=== PATIENT | female | born 1965 | race Caucasian/White ===

== ENCOUNTER 2016-07-07 14:25 | Emergency (ER) | payer MEDICAID ==
[2015-10-10 14:30] VITALS: BMI 22.7
[~2016-07-07 14:25] MED LIST: ASPIRIN81 MG PO; COUMADIN2 MG PO; COZAAR50 MG PO; HEMOCYTE PLUS C1 CAP PO; HYDROCODONE-APA1 TAB PO; KLONOPIN1 MG PO; SYNTHROID88 MCG PO
[2016-07-07 15:08] LABS: BASOPHILS 0.6 % (0.0-2.0); EOSINOPHILS 1.1 % (0-7); HEMATOCRIT 37.1 % (36.0-48.0); HEMOGLOBIN 12.7 g/dL (12-16); LYMPHOCYTES 38.1 % (15-50); MCH 30.7 pg (26.0-34.0); MCHC 34.2 g/dL (31.0-37.0); MCV 89.6 fL (80.0-100.0); MEAN PLATELET VOLUME 9.8 fL (7.4-10.4); NEUTROPHILS 54.2 % (40-80); RBC 4.14 10x6/uL (4.00-5.40); WBC 5.3 10x3/uL (4.8-10.8)
[2016-07-07 15:13] LABS: PLATELET COUNT 146 10x3/uL (130-400)
[2016-07-07 15:28] LABS: INR 2.22 (0.85-1.17); PROTIME 24.7 SECONDS (11.6-15.0)
[2016-07-07 15:29] LABS: APTT 81.4 SECONDS (22.8-39.4)
[2016-07-07 15:33] LABS: ALBUMIN 3.8 g/dL (3.4-5.0); ALKALINE PHOSPHATASE 104 U/L (46-116); ALT (SGPT) 19 U/L (10-68); BILIRUBIN - TOTAL 0.33 mg/dL (0.2-1.3); CALC OSMOLALITY 281 mosm/kg (275-300); CALCIUM 8.9 mg/dL (8.5-10.1); CARBON DIOXIDE 29.5 mmol/L (21.0-32.0); CHLORIDE - SERUM 105 mmol/L (98-107); CREATININE - SERUM 1.5 mg/dL (0.6-1.3); GLUCOSE 80 mg/dL (74-106); PROTEIN - SERUM 7.2 g/dL (6.4-8.2); SODIUM 140 mmol/L (136-145); UREA NITROGEN 23 mg/dL (7-18); eGFR NON AFRICAN AMERICAN 39 mL/min (90-120)
[2016-07-07 15:53] LABS: CKMB 1.1 U/L (0.0-3.6); CREATINE KINASE 88 UL (21-215)
[2016-07-07 15:56] LABS: TROPONIN-I 0.064 ng/mL (0.000-0.060)
== END 2016-07-07 18:07 | disposition home or self-care (01) ==
LOC: D.ER 14:25
PROVIDERS: Emergency Medicine
DX: T50.901A Poisoning by unspecified drugs, medicaments and biological substances, accidental (unintentional), initial encounter (principal); R41.82 Altered mental status, unspecified; J15.9 Unspecified bacterial pneumonia; R00.1 Bradycardia, unspecified; I10 Essential (primary) hypertension; E78.5 Hyperlipidemia, unspecified

== ENCOUNTER → 2017-02-16 10:23 | Outpatient (CLI) | payer MEDICAID ==
[2015-10-10 14:30] VITALS: BMI 22.7
== END | disposition home or self-care (01) ==
LOC: D.NM 10:23
DX: Z68.23 Body mass index [BMI] 23.0-23.9, adult (principal); N17.0 Acute kidney failure with tubular necrosis; I10 Essential (primary) hypertension; E03.9 Hypothyroidism, unspecified; M06.9 Rheumatoid arthritis, unspecified; Z68.22 Body mass index [BMI] 22.0-22.9, adult

== ENCOUNTER → 2017-08-25 08:27 | Outpatient (CLI) | payer MEDICAID ==
[2015-10-10 14:30] VITALS: BMI 22.7
== END | disposition home or self-care (01) ==
LOC: D.ECHO 08:27
DX: I35.0 Nonrheumatic aortic (valve) stenosis (principal)

== ENCOUNTER → 2017-10-03 14:00 | Outpatient (CLI) | payer MEDICAID ==
[2015-10-10 14:30] VITALS: BMI 22.7
[2017-10-03 14:42] LABS: INR 6.71 (0.85-1.17); PROTIME 57.3 SECONDS (11.6-15.0)
[2017-10-03 14:43] LABS: NORMAL PLASMA / PROTHROMBIN 14.5 SECONDS (11.6-15.0)
== END | disposition home or self-care (01) ==
LOC: D.LABREF 14:00
PROVIDERS: Internal Medicine Hematology & Oncology
DX: I82.509 Chronic embolism and thrombosis of unspecified deep veins of unspecified lower extremity (principal); Z79.01 Long term (current) use of anticoagulants

== ENCOUNTER → 2018-01-24 16:09 | Outpatient (CLI) | payer MEDICAID ==
[2015-10-10 14:30] VITALS: BMI 22.7
[2018-01-24 19:00] LABS: INR 4.33 (0.85-1.17); PROTIME 40.6 SECONDS (11.6-15.0)
== END | disposition home or self-care (01) ==
LOC: D.LABREF 16:09
PROVIDERS: Internal Medicine Hematology & Oncology
DX: I82.509 Chronic embolism and thrombosis of unspecified deep veins of unspecified lower extremity (principal); Z51.81 Encounter for therapeutic drug level monitoring; Z79.01 Long term (current) use of anticoagulants

== ENCOUNTER 2018-08-27 13:39 | Observation (INO) | payer OTHER, MEDICAID ==
[2018-08-27] VITALS (7 sets, daily range): BP systolic 130–161; BP diastolic 75–85; BMI 22.7
[~2018-08-27] VITALS: Ht 154.9 cm; Wt 57.2 kg
[2018-08-27] MEDS ORDERED: FOLATE0.4 MG PO (13:47)
[2018-08-27 14:33] LABS: BASOPHILS 0.4 % (0-2); HEMATOCRIT 40.4 % (36.0-48.0); HEMOGLOBIN 14.7 g/dL (12-16); LYMPHOCYTES 29.6 % (15-50); MCH 31.1 pg (26.0-34.0); MCHC 36.4 g/dL (31.0-37.0); MCV 85.6 fL (80.0-100.0); MEAN PLATELET VOLUME 9.1 fL (7.4-10.4); MONOCYTES 6.5 % (2-11); NEUTROPHILS 62.5 % (40-80); PLATELET COUNT 166 10x3/uL (130-400); RBC 4.72 10x6/uL (4.00-5.40); WBC 5.1 10x3/uL (4.8-10.8)
[2018-08-27 15:04] LABS: ALBUMIN 3.8 g/dL (3.4-5.0); ALKALINE PHOSPHATASE 95 U/L (46-116); ALT (SGPT) 17 U/L (10-68); BILIRUBIN - TOTAL 0.46 mg/dL (0.2-1.3); CALC OSMOLALITY 275 mosm/kg (275-300); CALCIUM 8.6 mg/dL (8.5-10.1); CARBON DIOXIDE 30.1 mmol/L (21.0-32.0); CHLORIDE - SERUM 98 mmol/L (98-107); CKMB 0.8 U/L (0.0-3.6); CREATINE KINASE 44 UL (21-215); CREATININE - SERUM 1.3 mg/dL (0.6-1.3); GLUCOSE 106 mg/dL (74-106); MAGNESIUM - SERUM 1.6 mg/dL (1.8-2.4); PROTEIN - SERUM 7.6 g/dL (6.4-8.2); SODIUM 137 mmol/L (136-145); TROPONIN-I 0.027 ng/mL (0.000-0.060); UREA NITROGEN 19 mg/dL (7-18); eGFR NON AFRICAN AMERICAN 45 mL/min (90-120)
[2018-08-27 15:06] LABS: POTASSIUM - SERUM 2.4 mmol/L (3.5-5.1)
[2018-08-27 15:51] LABS: D-DIMER-QUANTITATIVE < 0.27 ug/mLFEU (0.20-0.54)
[2018-08-27 16:02] LABS: APTT 76.1 SECONDS (22.8-39.4); INR 3.23 (0.85-1.17); PROTIME 32.2 SECONDS (11.6-15.0)
--- NOTE | 2018-08-27 22:39 | NUR ---
RECIEVED REPORT FROM [facility] AT 2039.ARRIVED TO FLOOR IN W/C AT 2054 WITH SPOUSE AT HER SIDE. ALERT AND ORIENTED X4. DENIES ANY PAIN UPON ASSESSMENT. WANTED TO KNOW HOW OFTEN SHE COULD HAVE HER PAIN MEDICATION. THEN C/O PAIN AND REQUESTED HER MORPHINE. MED GIVEN PER ORDERS. WILL REASSESS. IV TO RIGHT FA WITH NS WIT MAG AND K+ INFUSING AT 125/HR. NO REDNESS OR SWELLING TO SITE. UP AD CARMELA TO B/R. EXPLAINED NPO STATUS AT MIDNIGHT VERBAL UNDERSTANDING GIVEN.
[2018-08-28 00:23] VITALS: BP 161/84
[2018-08-28 05:30] VITALS: BP 102/68
--- NOTE | 2018-08-28 06:00 | NUR ---
D/C'D [facility] CATH WITH TIP INTACT.
[2018-08-28 06:28] LABS: BASOPHILS 0.4 % (0-2); EOSINOPHILS 1.8 % (0-7); HEMATOCRIT 37.6 % (36.0-48.0); HEMOGLOBIN 13.4 g/dL (12-16); IMMATURE GRANULOCYTES 0.2 % (0-5); LYMPHOCYTES 41.9 % (15-50); MCH 31.1 pg (26.0-34.0); MCHC 35.6 g/dL (31.0-37.0); MCV 87.2 fL (80.0-100.0); MEAN PLATELET VOLUME 9.6 fL (7.4-10.4); MONOCYTES 8.4 % (2-11); NEUTROPHILS 47.3 % (40-80); PLATELET COUNT 173 10x3/uL (130-400); RBC 4.31 10x6/uL (4.00-5.40); RDW 13.1 % (11.5-14.5); WBC 5.1 10x3/uL (4.8-10.8)
[2018-08-28 07:23] LABS: ALBUMIN 3.3 g/dL (3.4-5.0); ALKALINE PHOSPHATASE 83 U/L (46-116); ALT (SGPT) 16 U/L (10-68); BILIRUBIN - TOTAL 0.43 mg/dL (0.2-1.3); CALCIUM 8.1 mg/dL (8.5-10.1); CARBON DIOXIDE 29.2 mmol/L (21.0-32.0); CHLORIDE - SERUM 104 mmol/L (98-107); CKMB 0.8 U/L (0.0-3.6); CREATINE KINASE 45 UL (21-215); CREATININE - SERUM 1.2 mg/dL (0.6-1.3); GLUCOSE 83 mg/dL (74-106); PROTEIN - SERUM 6.5 g/dL (6.4-8.2); SODIUM 142 mmol/L (136-145); TROPONIN-I 0.037 ng/mL (0.000-0.060); eGFR NON AFRICAN AMERICAN 50 mL/min (90-120)
[2018-08-28 07:52] LABS: CALC OSMOLALITY 281 mosm/kg (275-300); POTASSIUM - SERUM 3.2 mmol/L (3.5-5.1); UREA NITROGEN 13 mg/dL (7-18)
[2018-08-28 07:58] LABS: MAGNESIUM - SERUM 3.5 mg/dL (1.8-2.4)
[2018-08-28 08:03] VITALS: BP 114/70
[2018-08-28] MEDS ORDERED: COUMADIN5 MG PO (11:07)
[2018-08-28] MEDS ORDERED: SYNTHROID50 MCG PO (11:08)
[2018-08-28 12:01] VITALS: BP 115/70
[2018-08-28 15:40] VITALS: BP 124/86
--- NOTE | 2018-08-28 15:46 | MORECARE ---
CASE MANAGEMENT DISCHARGE SUMMARY PATIENT: EVELYN MCLAUGHLIN UNIT: [id number] ADM DATE: 08/27/18 AGE: 53 : 63 SEX: F ROOM/BED: D.4300 AUTHOR: WILBERT ENG PHYSICIAN: REFERRING PHYSICIAN: MELITON MAIER MD DATE OF SERVICE: 08/28/18 Discharge Plan Patient Name: EVELYN MCLAUGHLIN Facility: [facility]:[place] : 1965 Planned Disposition: Anticipated Discharge Date: Discharge Date: Expected LOS: Initial Reviewer: [email or web address] Initial Review Date: 08/27/2018 Generated: 08/28/18 4:46 pm Coverage Notice Reviewer: [email or web address] - Adrienne Ashburn Notice Issued Date-Time: 08/28/2018 15:27 Notice Type: Medicare Outpatient Observation Notice Notice Delivered To: Patient Relationship to Patient: Self Logging Operations Inspector Name: Delivery Method: HAND - Hand Delivered Jacqueline Days: Prior Verbal Notification: Recipient Understood Notice: Yes Recipient Signature: Yes Med Rec Note Co-signed by Attending: Coverage Notice Comment: EDWARD DISCUSSED AFTER VERBAL CONSENT TO DO SUCH IN THE PRESENCE OF HER SPOUSE, GOLDY. Patient Name: EVELYN MCLAUGHLIN Page [id number] at 1546 All edits/amendments must be made on the electronic document DICTATION DATE: 08/28/18 1546 FINANCIAL OPERATIONS ANALYST: KARLI 08/28/18 1546 RPT#: [id number] DC DATE: STATUS: ADM IN [place] [id number] [place] [address] END OF REPORT
--- NOTE | 2018-08-28 19:31 | NUR ---
RECIEVED UP IN BED WITH EYES OPEN AND TV ON. SPOUSE AT BEDSIDE. ALERT AND ORIENTED X4. UP AD CARMELA. DENIES ANY NEEDS AT THIS TIME.
[2018-08-28 21:26] VITALS: BP 131/79
[2018-08-29 00:29] VITALS: BP 106/64
[2018-08-29 05:58] LABS: BASOPHILS 0.3 % (0-2); EOSINOPHILS 1.8 % (0-7); HEMOGLOBIN 13.3 g/dL (12-16); IMMATURE GRANULOCYTES 0.2 % (0-5); MCH 31.1 pg (26.0-34.0); MCV 88.8 fL (80.0-100.0); MEAN PLATELET VOLUME 9.4 fL (7.4-10.4); MONOCYTES 9.6 % (2-11); NEUTROPHILS 57.1 % (40-80); PLATELET COUNT 154 10x3/uL (130-400); RBC 4.28 10x6/uL (4.00-5.40); RDW 13.3 % (11.5-14.5)
[2018-08-29 06:13] LABS: PROTIME 26.3 SECONDS (11.6-15.0)
[2018-08-29 06:22] VITALS: BP 112/63
[2018-08-29 06:28] LABS: INR 2.5 (0.85-1.17)
[2018-08-29 06:34] LABS: ALBUMIN 3.4 g/dL (3.4-5.0); ANION GAP 12.4 mmol/L (8-16); BILIRUBIN - TOTAL 0.36 mg/dL (0.2-1.3); CALCIUM 8.2 mg/dL (8.5-10.1); CARBON DIOXIDE 29.9 mmol/L (21.0-32.0); CREATININE - SERUM 1.2 mg/dL (0.6-1.3); POTASSIUM - SERUM 3.3 mmol/L (3.5-5.1)
--- NOTE | 2018-08-29 07:18 | NUR ---
PT RESQUESTING PAIN MEDICATION FOR HEADACHE, GAVE 4MG OF MORPHINE FOR PAIN LEVEL OF 7/10. ALSO GAVE 40MEQ OF K FOR LOW K OF 3.3. PT DENIES ANY OTHER NEEDS AT THIS TIME. PT A/O X4, RESP EVEN AND NONLAOBRED ON RA. RT WRIST IV INFUISNG NS AT 125CC/HR. CALL LIGHT IN REACH,NAD NOTED, WILL CONTINUE TO MONITOR.
[2018-08-29 09:52] VITALS: BP 102/63
[2018-08-29] MEDS ORDERED: PROZAC20 MG PO (10:04)
[2018-08-29] MEDS ORDERED: HCTZ25 MG PO (10:04)
[2018-08-29] MEDS ORDERED: NORVASC10 MG PO (10:04)
--- NOTE | 2018-08-29 11:39 | NUR ---
4MG OF MORPHINE GIVEN FOR PAIN LEVEL OF 6/10. EKG DONE AT THIS TIME. SHOWING SR 62 LEFT AZIX DEVIATION. PT DENIES ANY OTHER NEEDS AT THIS TIME. CALL LIGHT IN RECH, AT BEDSIDE, NAD NOTED, WILL CONTINUE TO MONITOR.
[2018-08-29 13:03] LABS: CKMB 4.1 U/L (0.0-3.6); CREATINE KINASE 193 UL (21-215); POTASSIUM - SERUM 3.4 mmol/L (3.5-5.1); TROPONIN-I 0.051 ng/mL (0.000-0.060)
[2018-08-29 13:32] VITALS: Ht 154.9 cm; Wt 57.2 kg
[2018-08-29 15:18] VITALS: BP 165/93
[2018-08-29 17:58] LABS: CKMB 1.4 U/L (0.0-3.6); CREATINE KINASE 105 UL (21-215); TROPONIN-I 0.048 ng/mL (0.000-0.060)
--- NOTE | 2018-08-29 19:30 | NUR ---
PT RESTING IN BED. PT IS AAO, GLASSES ON AND WATCHING TV. PT DENIES ANY NEEDS. STATES SHE IS GOING TO TAKE A NAP, HEADACHES HAVE BEEN BOTHERING HER ALL DAY NAME AND DATE PLACED ON BOARD. BEDLOW AND CALL LIGHT IN REACH. WILL CPOC
[2018-08-29 21:01] VITALS: BP 117/67
--- NOTE | 2018-08-29 21:25 | NUR ---
PT COMPLAINS OF PAIN. MORPHINE GIVEN ORDERED. PT DENIES ANY OTHER NEEDS. WILL CPOC
[2018-08-29 22:44] LABS: CREATINE KINASE 97 UL (21-215); TROPONIN-I 0.045 ng/mL (0.000-0.060)
[2018-08-30 01:06] VITALS: BP 108/70
--- NOTE | 2018-08-30 04:31 | NUR ---
PT HAS BEEN IN SR. MONITOR NEEDED FOR ANOTHER PT. MONITOR REMOVED AND CLEANED.
--- NOTE | 2018-08-30 05:01 | NUR ---
SYNTHROID AND PROTONIX GIVEN. NOURISHMENT OFFERED. PT SITTING UP IN BED. PT IS UP AD CARMELA. PT WILL CALL FOR ASSIST WHEN NEEDED. NO S/S OF DISTRESS. PT WILL CALL FOR ASSIST WHEN NEEDED. WILL CPOC
[2018-08-30 06:05] VITALS: BP 105/55
[2018-08-30 06:05] LABS: INR 2.77 (0.85-1.17); PROTIME 28.5 SECONDS (11.6-15.0)
[2018-08-30 06:17] LABS: BASOPHILS 0.4 % (0-2); EOSINOPHILS 2.6 % (0-7); HEMATOCRIT 33.5 % (36.0-48.0); HEMOGLOBIN 11.6 g/dL (12-16); LYMPHOCYTES 34.3 % (15-50); MCH 30.9 pg (26.0-34.0); MCHC 34.6 g/dL (31.0-37.0); MCV 89.1 fL (80.0-100.0); MEAN PLATELET VOLUME 9.3 fL (7.4-10.4); MONOCYTES 11.9 % (2-11); NEUTROPHILS 50.8 % (40-80); PLATELET COUNT 134 10x3/uL (130-400); RBC 3.76 10x6/uL (4.00-5.40); RDW 13.2 % (11.5-14.5); WBC 5.1 10x3/uL (4.8-10.8)
[2018-08-30 06:20] LABS: ALBUMIN 2.7 g/dL (3.4-5.0); ANION GAP 12.4 mmol/L (8-16); BILIRUBIN - TOTAL 0.27 mg/dL (0.2-1.3); CALCIUM 7.7 mg/dL (8.5-10.1); CREATININE - SERUM 1.3 mg/dL (0.6-1.3); POTASSIUM - SERUM 3.4 mmol/L (3.5-5.1); PROTEIN - SERUM 5.7 g/dL (6.4-8.2)
--- NOTE | 2018-08-30 06:48 | NUR ---
MORPHINE GIVEN FOR PAIN. 40 MEQ OF KDUR GIVEN FOR POTASSIUM OF 3.4 PT HAS NO S/S OF DISTRESS. BEDLOW AND CALL LIGHT IN REACH. WILL CPOC
[2018-08-30 09:38] VITALS: BP 112/57
[2018-08-30 12:39] LABS: MAGNESIUM - SERUM 1.5 mg/dL (1.8-2.4)
[2018-08-30 12:40] LABS: POTASSIUM - SERUM 4.1 mmol/L (3.5-5.1)
[2018-08-30 13:21] VITALS: BP 111/68
[2018-08-30] MEDS ORDERED: BUTALB-APAP-CA1 EACH PO (14:30)
--- NOTE | 2018-08-30 15:01 | NUR ---
I have reviewed this patient and I concur with the Shift Assessment completed by the Licensed Practical Nurse today this shift.
--- NOTE | 2018-08-30 15:57 | NUR ---
CALLED [facility] #20 TO [facility]. SPOKE WITH VELIA/PHARMACIST
--- NOTE | 2018-08-30 15:59 | NUR ---
[facility] CALLING IN [facility] SCRIPT TO [facility]. DISCHARGE INSTRUCTIONS GIVEN AND EXPLAINED TO PT. PT HAS NO FURTHER QUESTIONS. CHART COPY SIGNED. RIGHT WRIST 20G IV DC'D WITH CATH INTACT.
--- NOTE | 2018-08-30 16:08 | NUR ---
PT TAKEN DOWN VIA WC BY PULL OUT OPERATOR ACCOMPANIED BY .
--- NOTE | 2018-08-31 09:08 | MORECARE ---
CASE MANAGEMENT DISCHARGE SUMMARY PATIENT: EVELYN MCLAUGHLIN UNIT: [id number] ADM DATE: 08/27/18 AGE: 53 : 63 SEX: F ROOM/BED: D.3127 AUTHOR: WILBERT ENG PHYSICIAN: REFERRING PHYSICIAN: MELITON MAIER MD DATE OF SERVICE: 08/31/18 Discharge Plan Patient Name: EVELYN MCLAUGHLIN [facility] [facility] 1965 Planned Disposition: Home Anticipated Discharge Date: 08/30/18 Discharge Date: 08/30/2018 Expected LOS: 3 Initial Reviewer: [email or web address] Initial Review Date: 08/27/2018 Generated: 08/31/18 10:08 am Coverage Notice Reviewer: [email or web address] Grace Espitia Notice Issued Date-Time: 08/28/2018 15:27 Notice Type: Medicare Outpatient Observation Notice Notice Delivered To: Patient Relationship to Patient: Self Home Service Consultant Name: Delivery Method: HAND - Hand Delivered Jacqueline Days: Prior Verbal Notification: Recipient Understood Notice: Yes Recipient Signature: Yes Med Rec Note Co-signed by Attending: Coverage Notice Comment: EDWARD DISCUSSED AFTER VERBAL CONSENT TO DO SUCH IN THE PRESENCE OF HER SPOUSE, GOLDY. Last DP export: 08/28/18 2:46 pm Patient Name: EVELYN MCLAUHGLIN Page [phone] at 0908 All edits/amendments must be made on the electronic document DICTATION DATE: 08/31/18907 DIRECTOR CUSTOMER: KARLI 08/31/18 09 RPT#: [id number] DC DATE:08/30/18 STATUS: DIS IN [facility] [address] [place] [address] END OF REPORT
--- NOTE | 2018-08-31 13:10 | CN ---
PATIENT NAME:EVELYN MCLAUGHLIN MEDICAL RECORD: [id number] : 63 LOCATION:D. D.2120 ADMIT DATE: 08/27/18 ACCOUNT: [id number] CONSULTING PHYSICIAN: CHRISS MACIAS MD REFERRING PHYSICIAN: MELITON MAIER MD DATE OF CONSULTATION: 08/28/2018 HISTORY OF PRESENT ILLNESS: A 53-year-old female with history of rheumatic heart disease, status post replacement of both aortic and mitral valves with mechanical prosthesis maintained on Coumadin. INRs have been stable per her report, had an onset yesterday of atypical chest pain. She had no evidence of coronary artery disease at the time of her angiography prevalve replacement, found to be hypokalemic, hypomagnesemic, does report some diarrhea as of late. We are asked to see her concerning her cardiovascular status. PAST MEDICAL HISTORY: Includes: 1. History of rheumatic fever, subsequent aortic and mitral valve replacement. 2. Hypothyroidism. SOCIAL HISTORY: Smokes less than a pack a day, nondrinker. No set exercise program. ALLERGIES: ADHESIVE TAPE. MEDICATIONS: Include Coumadin per scale, Synthroid 88 mcg daily. REVIEW OF SYSTEMS: The patient reports easy bruising but reports no swollen glands. The patient reports no fever, no night sweats, no significant weight gain, no significant weight loss. No significant exercise tolerance. The patient reports no dry eyes, no irritation, no vision change. Patient reports no difficulty hearing and no ear pain. Patient reports no frequent nose bleeds or nose and sinus problems. Patient reports on arm pain on exertion. No shortness of breath while lying down. No history of heart murmur. Patient reports no cough, no wheezing or coughing up blood. Patient reports no abdominal pain, no vomiting. Normal appetite. No diarrhea and not vomiting blood. No nausea and no constipation. Patient reports no incontinence. No difficulty urinating. No hematuria. No increased frequency. Patient reports no muscle aches. No weakness, no arthralgias, no back pain. No swelling of the extremities. Patient reports no abnormal mole, no jaundice, no rashes. Reports no loss of consciousness. No weakness and no numbness. No seizures, dizziness, or headaches. The patient reports no depression, no sleep disturbance, feeling safe in a relationship and no alcohol abuse. Patient reports on fatigue. Reports no runny nose or sinus pressure. No itching, no hives, and no frequent sneezing. PHYSICAL EXAMINATION: GENERAL: Pleasant female in no acute distress, appears stated age. VITAL SIGNS: Blood pressure 114/70, pulse 57 and regular. HEENT: Normocephalic, atraumatic. NECK: No bruits are noted. HEART: Regular, crisp aortic closure sounds. LUNGS: Slightly prolonged expiratory phase. ABDOMEN: Soft, nontender. EXTREMITIES: Pulses 2+. No edema. NEUROLOGIC: Grossly intact. CONSULT REPORT [id number] EVELYN MCLAUGHLIN DIAGNOSTIC DATA: ECG without acute change. IMPRESSION: Somewhat atypical chest pain. She had no evidence of coronary artery disease at the time of her valve replacement. Agree with cycling enzymes, serial ECGs. We will check echocardiographic study to assess for focal wall motion and adequate valve Doppler studies. Thank you for the consultation. TRANSINT:[id number] Voice Confirmation ID: [id number] DOCUMENT ID: [id number] CHRISS MACIAS MD at 1310 CC: [id number] DICTATION DATE: 08/28/18 1004 [employer] SHOP OPTICIAN: 08/28/18 1201 DIS IN 08/30/18 [facility] [address] [place] [address]
--- NOTE | 2018-08-31 13:10 | EC ---
PATIENT:EVELYN MCLAUGHLIN DATE OF SERVICE: 08/27/18 SEX: F MEDICAL RECORD: [id number] DATE OF : 63 LOCATION:D.M2 D.212 AGE OF PATIENT: 53 ADMISSION DATE: 08/27/18 REFERRING PHYSICIAN: INTERPRETING PHYSICIAN: CHRISS MACIAS MD ECHOCARDIOGRAM REPORT ECHO CHARGES 4 ECHO COMPLETE Date: 08/28/18 CLINICAL DIAGNOSIS: AVR/MVR ECHOCARDIOGRAPHIC MEASUREMENTS (adult normal given) AC root (d.<3.7cm) 3.1 cm LV Septum d (<1.2 cm> 1.2 cm Valve Excursion 1.7 cm LV Septum (systole) 1.6 cm Left Atria (s.<4.0cm> 2.7 cm LVPW d(<1.2cm) 1.3 cm RV (d.<2.3cm) 2.0 cm LVPW (sytole) 1.8 cm LV diastole(<5.6CM) 4.4 cm MV E-F(>70mm/sec) cm LV systole 2.3 cm LVOT Diameter 1.4 cm MV exc.(>10mm) cm Est.ejection fraction (50-75%) % DOPPLER: LVIT cm/sec A 86 cm/sec E 122 cm/sec LA cm/sec RVSP 30.7 mmHg LVOT 140 cm/sec AOP1/2T m/s Asc. Ao 178 cm/sec RVOT 65 cm/sec RA cm/sec PA 113 cm/sec AV Gradient Peak 12.6 mmHg AV Mean 6.7 mmHg AV Area 1.2 cm MV Gradient Peak 5.9 mmHg MV Mean 2.2 mmHg MV Area cm COMMENTS: Torch Brazer: Jovany ARMAS Student Outreach Coordinator: 3 Dr. Liu TAPE# PACS Pericardial Effusion N DATE OF SERVICE: Adequate 2-D echo, color flow and spectral Doppler, and M-mode. No LVH. LV internal dimensions are normal. Wall motion is normal. EF is greater than or equal to 65%. Prosthetic mechanical aortic valve is noted with acceptable Doppler velocity. Left atrium is normal. Mitral valve shows mechanical mitral prosthesis with normal Doppler velocity, no significant MR. Right-sided chambers were grossly normal. Moderate TR. ECHOCARDIOGRAM REPORT [id number] EVELYN MCLAUGHLIN TRANSINT:[id number] Voice Confirmation ID: [id number] DOCUMENT ID: [id number] CHRISS MACIAS MD at 1310 CC: [id number] DICTATION DATE: 08/29/18 1252 DESIGN DRAFTSMAN: 08/29/18 1313 DIS IN 08/30/18 [place] [id number] [place] [id number]
== END 2018-08-30 16:09 | disposition home or self-care (01) ==
LOC: D.ER 13:39 → D.M2 17:17 → D.EDHOLD 17:17 → D.M2 17:17 → OBSVTIME 08-30 16:07 → D.M2 08-30 16:09
PROVIDERS: Emergency Medicine; Family Medicine; ADMIT Internal Medicine Nephrology; ATTEND Internal Medicine Nephrology
DX: E03.9 Hypothyroidism, unspecified (principal); F32.9 Major depressive disorder, single episode, unspecified; F41.9 Anxiety disorder, unspecified; I07.1 Rheumatic tricuspid insufficiency; E87.6 Hypokalemia; R51 Headache; Z72.0 Tobacco use; Z86.73 Personal history of transient ischemic attack (TIA), and cerebral infarction without residual deficits

== ENCOUNTER 2018-10-18 16:12 | Inpatient (IN) | payer OTHER, MEDICAID ==
[~2018-10-18] VITALS: Ht 154.9 cm; Wt 54.6 kg
--- NOTE | ~2018-10-18 | CN ---
PATIENT NAME:EVELYN MCLAUGHLIN MEDICAL RECORD: [id number] : 63 LOCATION:D. D.2114 ADMIT DATE: 10/18/18 ACCOUNT: [id number] CONSULTING PHYSICIAN: CHRISS MACIAS MD REFERRING PHYSICIAN: MELITON MAIER MD DATE OF CONSULTATION: 10/19/2018 HISTORY OF PRESENT ILLNESS: A 53-year-old female with a history of aortic and mitral valve replacement as well as mechanical prosthesis secondary to rheumatic fever. Has a history of intermittent hypokalemia and is noted to have frequent PVCs yesterday with decreased perfusion rhythm. She was also found to have potassium of 2.1. She is on hydrochlorothiazide. Reports adequate p.o. intake of vegetables and fruit. No chronic diarrhea. No chronic emesis. Has recurrent arrhythmias. PAST MEDICAL HISTORY: Includes; 1. History of rheumatic fever with subsequent mitral and aortic valve replacement. 2. Hypothyroidism. 3. Hypertension. ALLERGIES: ADHESIVE TAPE. SOCIAL HISTORY: Smokes less than a pack a day, nondrinker. She is able to take care of all her ADLs. MEDICATIONS: Include warfarin per scale, amlodipine 10 mg p.o. daily, Prozac 20 every day, hydrochlorothiazide 25 every day, Synthroid 50 mcg every day. REVIEW OF SYSTEMS: The patient reports easy bruising but reports no swollen glands. The patient reports no fever, no night sweats, no significant weight gain, no significant weight loss. No significant exercise tolerance. The patient reports no dry eyes, no irritation, no vision change. Patient reports no difficulty hearing and no ear pain. Patient reports no frequent nose bleeds or nose and sinus problems. Patient reports on arm pain on exertion. No shortness of breath while lying down. No history of heart murmur. Patient reports no cough, no wheezing or coughing up blood. Patient reports no abdominal pain, no vomiting. Normal appetite. No diarrhea and not vomiting blood. No nausea and no constipation. Patient reports no incontinence. No difficulty urinating. No hematuria. No increased frequency. Patient reports no muscle aches. No weakness, no arthralgias, no back pain. No swelling of the extremities. Patient reports no abnormal mole, no jaundice, no rashes. Reports no loss of consciousness. No weakness and no numbness. No seizures, dizziness, or headaches. The patient reports no depression, no sleep disturbance, feeling safe in a relationship and no alcohol abuse. Patient reports on fatigue. Reports no runny nose or sinus pressure. No itching, no hives, and no frequent sneezing. PHYSICAL EXAMINATION: GENERAL: Pleasant female, in no acute distress. VITAL SIGNS: Blood pressure 107/68, pulse 54 and regular. HEENT: Normocephalic, atraumatic. NECK: No bruits noted. HEART: Regular, occasional extrasystole at this point. A crisp mitral and aortic valve closure sound. CONSULT REPORT [id number] EVELYN MCLAUGHLIN LUNGS: Good air excursion. ABDOMEN: Soft, nontender. EXTREMITIES: Pulses 2+. There is no edema. IMPRESSION AND PLAN: Hypokalemia. Left ventricular function has been normal in the past, suspect arrhythmias secondary to the electrolyte disturbance and not a true primary arrhythmia. Correct electrolytes as you are doing. Continue diuretic, we would switch to potassium-sparing such as Aldactone 25 every day. Further recommendations based on clinical course. TRANSINT:[id number] Voice Confirmation ID: [id number] DOCUMENT ID: [id number] CHRISS MACIAS MD CC: [id number] DICTATION DATE: 10/19/1843 SPEAKING UNIT ASSEMBLER: 10/19/18 1147 ADM IN [facility] [address] [place] [address]
[~2018-10-18 16:12] MED LIST changes: +BUTALB-APAP-CA1 EACH PO; +COUMADIN5 MG PO; +FOLATE0.4 MG PO; +HCTZ25 MG PO; +NORVASC10 MG PO; +PROZAC20 MG PO; +SYNTHROID50 MCG PO
[2018-10-18 17:15] LABS: INR 1.78 (0.85-1.17); PROTIME 20.1 SECONDS (11.6-15.0)
[2018-10-18 17:16] LABS: APTT 78.5 SECONDS (22.8-39.4)
[2018-10-18 17:25] LABS: BASOPHILS 0.3 % (0-2); EOSINOPHILS 0.4 % (0-7); HEMATOCRIT 38.6 % (36.0-48.0); HEMOGLOBIN 14.7 g/dL (12-16); IMMATURE GRANULOCYTES 0.1 % (0-5); LYMPHOCYTES 26.2 % (15-50); MCH 31.3 pg (26.0-34.0); MCHC 38.1 g/dL (31.0-37.0); MCV 82.3 fL (80.0-100.0); MEAN PLATELET VOLUME 9.4 fL (7.4-10.4); MONOCYTES 7.7 % (2-11); NEUTROPHILS 65.3 % (40-80); RBC 4.69 10x6/uL (4.00-5.40); RDW 13.2 % (11.5-14.5); WBC 7.1 10x3/uL (4.8-10.8)
[2018-10-18 17:30] LABS: PLATELET COUNT 213 10x3/uL (130-400)
[2018-10-18 17:43] LABS: ALBUMIN 4.1 g/dL (3.4-5.0); ALKALINE PHOSPHATASE 93 U/L (46-116); ALT (SGPT) 20 U/L (10-68); BILIRUBIN - TOTAL 0.51 mg/dL (0.2-1.3); CALCIUM 8.9 mg/dL (8.5-10.1); CARBON DIOXIDE 27.2 mmol/L (21.0-32.0); CHLORIDE - SERUM 94 mmol/L (98-107); CKMB 0.9 U/L (0.0-3.6); CREATINE KINASE 53 UL (21-215); CREATININE - SERUM 1.6 mg/dL (0.6-1.3); MAGNESIUM - SERUM 1.9 mg/dL (1.8-2.4); PROTEIN - SERUM 8.3 g/dL (6.4-8.2); SODIUM 134 mmol/L (136-145); UREA NITROGEN 31 mg/dL (7-18); eGFR NON AFRICAN AMERICAN 36 mL/min (90-120)
[2018-10-18 17:46] LABS: CALC OSMOLALITY 277 mosm/kg (275-300); GLUCOSE 150 mg/dL (74-106)
--- NOTE | 2018-10-18 17:48 | NUR ---
PATIENT UP TO BEDSIDE TOILET TO URINATE, C/M NOW SHOWING SR WITH NI PVCs
[2018-10-18 19:00] VITALS: BP 145/90
[2018-10-18 20:18] VITALS: BP 138/751
--- NOTE | 2018-10-18 21:46 | NUR ---
PATIENT OPENED THE DOOR TO HER ROOM. PATIENT STATED "I NEED HELP" I WENT TO HELP THE PATIENT'S EXTREMITIES BECAME RIGID AND SHE BEGAN TO FALL FORWARD HITTING HER HEAD. BEGAN GIGGLING, EXTREMITES CONTINUED TO BE STIFF. PATIENT WAS LIFTED TO THE BED. RAPID RESPONSE CALLED BP 70/40. PATIENT PLACED ON 2L O2. EKG COMPLETED. CT OF HEAD ORDERED AND NS AT 100. PATIENT WANTED TO CALL .
--- NOTE | 2018-10-18 22:56 | NUR ---
ORDERS FROM ER WHERE TO GIVEN 2 K+ RIDERS. PATIENT RECEIVING RIDERS AT A SLOWER RATE DUE TO PATIENT COMPLAINTS OF BURNING. CANCELLED AND REORDERED LABS FOR APPROPRIATE TIMES. WILL CPOC.
[2018-10-19] VITALS (7 sets, daily range): BP systolic 85–132; BP diastolic 52–82; Ht 154.9 cm; Wt 54.6 kg
[2018-10-19 03:34] LABS: BASOPHILS 0.4 % (0-2); EOSINOPHILS 1.1 % (0-7); HEMATOCRIT 32.2 % (36.0-48.0); IMMATURE GRANULOCYTES 0.2 % (0-5); LYMPHOCYTES 30.3 % (15-50); MCH 31.3 pg (26.0-34.0); MCHC 37.3 g/dL (31.0-37.0); MCV 83.9 fL (80.0-100.0); MEAN PLATELET VOLUME 9.2 fL (7.4-10.4); MONOCYTES 9.3 % (2-11); NEUTROPHILS 58.7 % (40-80); PLATELET COUNT 175 10x3/uL (130-400); RBC 3.84 10x6/uL (4.00-5.40); RDW 13.3 % (11.5-14.5)
[2018-10-19 03:37] LABS: WBC 4.6 10x3/uL (4.8-10.8)
[2018-10-19 04:05] LABS: ALBUMIN 3.2 g/dL (3.4-5.0); BILIRUBIN - TOTAL 0.37 mg/dL (0.2-1.3); CALCIUM 7.8 mg/dL (8.5-10.1); CARBON DIOXIDE 27.1 mmol/L (21.0-32.0); CREATININE - SERUM 1.4 mg/dL (0.6-1.3); MAGNESIUM - SERUM 1.8 mg/dL (1.8-2.4); PHOSPHOROUS 3.2 mg/dL (2.5-4.9); PROTEIN - SERUM 6.6 g/dL (6.4-8.2)
[2018-10-19 04:07] LABS: ANION GAP 13.2 mmol/L (8-16); POTASSIUM - SERUM 2.3 mmol/L (3.5-5.1)
[2018-10-19 04:08] LABS: TROPONIN-I 0.158 ng/mL (0.000-0.060)
[2018-10-19] MEDS ORDERED: TOPAMAX50 MG PO (11:07)
[2018-10-19] MEDS ORDERED: BUTALB-APAP-CA1 EACH (11:08)
[2018-10-19 13:06] LABS: % SATURATION 13 % (15-55); IRON 31 ug/dl (35-150); TOTAL IRON BIND CAPACITY 229 ug/dl (260-445); UNSAT IRON BIND CAPACITY 198 ug/dl (150-375)
--- NOTE | 2018-10-19 19:30 | NUR ---
RESUMING PATIENT CARE. PATIENT IS ALERT AND ORIENTED. RESTING COMFORTABLY IN BED. GAVE PATIENT SPECIMEN CUP FOR UA. RESPIRATIONS ARE EVEN AND UNLABORED. NO S/S OF DISTRESS. NO C/O PAIN. CALL LIGHT WITHIN REACH. WILL CPOC.
[2018-10-19 21:23] LABS: APPEARANCE CLEAR (CLEAR); BILIRUBIN NEGATIVE (NEGATIVE); COLOR YELLOW (YELLOW); GLUCOSE NEGATIVE (NEGATIVE); KETONE NEGATIVE (NEGATIVE); NITRITE NEGATIVE (NEGATIVE); PROTEIN NEGATIVE (NEGATIVE); SPECIFIC GRAVITY 1.015 (1.005-1.020); UROBILINOGEN NORMAL (NORMAL)
[2018-10-19 21:34] LABS: UDS - AMPHET NEGATIVE QUAL (NEGATIVE); UDS - BARB NEGATIVE QUAL (NEGATIVE); UDS - BENZO NEGATIVE QUAL (NEGATIVE); UDS - COCAINE NEGATIVE QUAL (NEGATIVE); UDS - OPIATE NEGATIVE QUAL (NEGATIVE); UDS - PCP NEGATIVE QUAL (NEGATIVE); UDS - THC NEGATIVE QUAL (NEGATIVE)
[2018-10-20] VITALS: BP 100/58
--- NOTE | 2018-10-20 02:06 | NUR ---
PATIENT RESTING COMFORTABLY IN BED. NO S/S OF DISTRESS. RESPIRATIONS ARE EVEN AND UNLABORED. CALLLIGHT WITHIN REACH. WILL CPOC.
[2018-10-20 06:09] LABS: INR 2.25 (0.85-1.17); PROTIME 24.2 SECONDS (11.6-15.0)
[2018-10-20 06:15] LABS: CALCIUM 7.9 mg/dL (8.5-10.1); CARBON DIOXIDE 23.4 mmol/L (21.0-32.0); CREATININE - SERUM 1.4 mg/dL (0.6-1.3); POTASSIUM - SERUM 3.4 mmol/L (3.5-5.1)
[2018-10-20 06:37] VITALS: BP 108/61
[2018-10-20 07:33] LABS: BASOPHILS 0.6 % (0-2); HEMATOCRIT 33.4 % (36.0-48.0); HEMOGLOBIN 11.7 g/dL (12-16); IMMATURE GRANULOCYTES 0.3 % (0-5); LYMPHOCYTES 45.1 % (15-50); MCH 30.8 pg (26.0-34.0); PLATELET COUNT 154 10x3/uL (130-400); WBC 3.5 10x3/uL (4.8-10.8)
[2018-10-20 07:38] LABS: MCV 87.9 fL (80.0-100.0)
[2018-10-20 08:22] VITALS: BP 140/77
[2018-10-20] MEDS ORDERED: ALDACTONE25 MG PO (09:36)
[2018-10-20 11:14] LABS: FOLATE (FOLIC ACID) - SERUM >20.0 ng/mL (>3.0)
--- NOTE | 2018-10-20 13:10 | NUR ---
REVIEWED DISCHARGE INSTRUCTION WITH PT STATES UNDERSTANDING COPY GIVEN DCD SALINE LOCKS TO RFA AND LFA WITH IV CATHETERS INTACT SITE FREE OF REDNESS OR EDEMA PT DISCHARGED HOME LEFT UNIT VIA W/C IN STABLE CONDITIO WITH ALL PERSONAL BELONGINGS
--- NOTE | 2018-10-20 18:10 | MORECARE ---
CASE MANAGEMENT DISCHARGE SUMMARY PATIENT: EVELYN MCLAUGHLIN UNIT: [id number] ADM DATE: 10/18/18 AGE: 53 : 63 SEX: F ROOM/BED: D.4414 AUTHOR: VELASQUEZ,DOC PHYSICIAN: REFERRING PHYSICIAN: MELITON MAIER MD DATE OF SERVICE: 10/20/18 Discharge Plan Patient Name: EVELYN MCLAUGHLIN Facility: [facility]:[place] : 1965 Planned Disposition: Home Anticipated Discharge Date: 10/20/18 Discharge Date: 10/20/2018 Expected LOS: 2 Initial Reviewer: [email or web address] Initial Review Date: 10/20/2018 Generated: 10/20/18 7:09 pm Comments DCP- Discharge Planning Updated by [email or web address]: Sagar Thomas on 10/20/18 5:[address] Patient Name: EVELYN MCLAUGHLIN Admission Status: ER Accout number: [id number] Admission Date: 10-18-2018 : 1965 Admission Diagnosis:HYPOKALEMIA Attending: MELITON MAIER Current LOS: 2 Anticipated DC Date: 10-20-2018 Planned Disposition: Home Primary Insurance: Incont Discharge Planning Comments: CM MET WITH PT IN ROOM TO DISCUSS DISCHARGE PLANNING AND NEEDS. PT REPORTS LIVING AT HOME INDEPENDENTLY WITH SPOUSE. PT HAS NO MEDICAL EQUIPMENT AND NO OUTSIDE SERVICES ASSISTING IN THE HOME. CM DISCUSSED AVAILABILITY OF HOME HEALTH, REHAB SERVICES AND MEDICAL EQUIPMENT. PT DENIES DISCHARGE NEEDS, REPORTS HER SPOUSE WILL PICK HER UP FOR DISCHARGE HOME. LAND MANAGEMENT FORESTER NURSE NOTIFIED. Auto Winder: Sagar Thomas DCPIA - Discharge Planning Initial Assessment Updated by [id number]: Sagar Thomas on 10/20/18 6:05 pm * Is the patient Alert and Oriented? Yes * How many steps to enter\exit or inside your home? * PCP DR FALCON * Pharmacy [facility] * Preadmission Environment Home with Family * ADLs Independent * Equipment None * Other Equipment NO MEDICAL EQUIPMENT PROVIDER PREFERENCE * List name and contact numbers for known caregivers / representatives who currently or will assist patient after discharge: GOLDY MCLAUGHLIN, SPOUSE, * Verbal permission to speak to the caregivers and representatives has been obtained from the patient. Yes * Community resources currently utilized None * Please name any agencies selected above. NONE * Additional services required to return to the preadmission environment? No * Can the patient safely return to the preadmission environment? Yes * Has this patient been hospitalized within the prior 30 days at any hospital? No Patient Name: EVELYN MCLAUGHLIN Page [phone] at 1810 All edits/amendments must be made on the electronic document DICTATION DATE: 10/20/181808 ENTRY LEVEL RECRUITER: KARLI 10/20/181808 RPT#: [id number] DC DATE:10/20/18 STATUS: DIS IN [facility] [address] [place] [address] END OF REPORT
== END 2018-10-20 13:10 | disposition home or self-care (01) | DRG 641 ==
LOC: D.ER 16:12 → D.M2 18:57 → D.EDHOLD 18:57 → D.M2 19:58
PROVIDERS: Family Medicine; ADMIT Internal Medicine Nephrology; ATTEND Internal Medicine Nephrology
DX: E87.6 Hypokalemia (principal); N17.9 Acute kidney failure, unspecified; R79.89 Other specified abnormal findings of blood chemistry; F32.9 Major depressive disorder, single episode, unspecified; F41.9 Anxiety disorder, unspecified; I10 Essential (primary) hypertension; E03.9 Hypothyroidism, unspecified; R00.1 Bradycardia, unspecified; R55 Syncope and collapse; R51 Headache; I08.0 Rheumatic disorders of both mitral and aortic valves; Z86.73 Personal history of transient ischemic attack (TIA), and cerebral infarction without residual deficits

== ENCOUNTER 2019-12-04 19:00 | Outpatient (CLI) | payer OTHER ==
[2018-10-19 12:48] VITALS: BMI 22.7
[~2019-12-04 19:00] MED LIST changes: +ALDACTONE25 MG PO; +BUTALB-APAP-CA1 EACH; +TOPAMAX50 MG PO
== END 2019-12-04 23:59 | disposition home or self-care (01) ==
LOC: D.MAMMO 19:00
PROVIDERS: ATTEND Family Medicine
DX: Z12.31 Encounter for screening mammogram for malignant neoplasm of breast (principal)

== ENCOUNTER → 2020-11-27 13:00 | Outpatient (CLI) | payer OTHER ==
[2018-10-19 12:48] VITALS: BMI 22.7
== END | disposition home or self-care (01) ==
LOC: D.MAMMO 11-13 14:15
PROVIDERS: ATTEND Family Medicine
DX: Z12.31 Encounter for screening mammogram for malignant neoplasm of breast (principal)